=== PATIENT | female | born 1955 | race Caucasian/White ===

== ENCOUNTER 2023-09-10 13:22 | Outpatient (CLI) | payer MEDICARE, SELFPAY ==
--- NOTE | ~2023-09-10 | DEXA_ITS ---
Bone Density Report Name: ARCHIE CASTELAN Age: 67 Sex: Female Ethnicity: White Date of : 1955 Indication: osteopenia; height loss; prior fracture; postmenopausal Referring Provider: Annie Kumari Study: Bone densitometry was performed. Exam Date: September 10, 2023 Accession number: [id number] Bone Density: Region BMD T-score Z-score Classification AP Spine (L1-L4) 0.851 -1.8 0.2 Osteopenia Femoral Neck (Left) 0.598 -2.3 -0.6 Osteopenia Total Hip (Left) 0.736 -1.7 -0.3 Osteopenia Femoral Neck (Right) 0.597 -2.3 -0.6 Osteopenia Total Hip (Right) 0.744 -1.6 -0.2 Osteopenia Total Hip Mean 0.740 -1.7 -0.3 Osteopenia World Health Organization criteria for BMD impression classify patients as: Normal (T-score at or above -1.0), Osteopenia (T-score between -1.0 and -2.5), or Osteoporosis (T-score at or below -2.5). 10-year Fracture Risk(1): Major Osteoporotic Fracture 20% Hip Fracture 3.9% Reported Risk Factors: [place] (), Neck BMD=0.597, BMI=26.2, previous fracture (1) FRAX(R) Version 3.08. Fracture probability calculated for an untreated patient. Fracture probability may be lower if the patient has received treatment. Previous Exams: Region Exam Age BMD T-score BMD Change BMD Change Date g/cm2 vs Baseline vs Previous AP Spine(L1-L4) 09/10/2023 67 0.851 -1.8 -0.073* -0.073* 12/29/2013 58 0.925 -1.1 Total Hip(Left) 09/10/2023 67 0.736 -1.7 -0.076* -0.076* 12/29/2013 58 0.812 -1.1 Total Hip(Right) 09/10/2023 67 0.744 -1.6 -0.074* -0.074* 12/29/2013 58 0.818 -1.0 *Denotes significance at 95% confidence level, LSC for AP Spine = 0.022 g/cm2, LSC for Total Hip = 0.027 g/cm2 Clinical Information Provided by Patient: Has had a low trauma fracture Has used the following medications: Vitamin D, Calcium, MTV Patient maximum height was 69 Menopause Age: 55 No regular weight bearing exercise Does not regularly consume dairy products Drinks caffeinated beverages Onset of menses at age 11 Number of children 2 Impression: The patient has low bone mass, based on the Left Femoral Neck T-score. The patient has an estimated ten-year risk of hip fracture of 3.9% and an estimated ten-year risk of major fracture of 20%, based on the WHO FRAX algorithm. The patient has risk factors, including: previous fracture. The BMD for the AP Spine(L1-L4) decreased, changing by -0.073 since the
== END 2023-09-10 13:23 ==
LOC: MICIMG 13:23
PROVIDERS: PCP Nurse Practitioner; Visit Provider Family Medicine
DX: Z78.0 Asymptomatic menopausal state (principal); M85.88 Other specified disorders of bone density and structure, other site; M85.852 Other specified disorders of bone density and structure, left thigh; M85.851 Other specified disorders of bone density and structure, right thigh
CPT/HCPCS: 77080

== ENCOUNTER 2024-07-01 09:27 | Outpatient (CLI) | payer MEDICARE, SELFPAY ==
[2024-07-01 11:05] LABS: Basophils Percent Auto 0.3 % (0.2-1.2); Eosinophils Absolute Auto 0.1 K/mm3 (0-0.3); Eosinophils Percent Auto 1.8 % (0-4.4); Hematocrit 40.9 % (37.0-47.0); Hemoglobin 13.7 g/dL (12.0-15.0); Immature Granulocyte Absolute 0.01 K/mm3 (0.00-0.031); Immature Granulocyte Percent A 0.2 % (0-0.5); Lymphocytes Absolute Auto 1.53 K/mm3 (0.9-3.2); Mean Corpuscular HGB Conc 33.5 g/dl (32-36); Mean Corpuscular Hemoglobin 32.2 pg (26-34); Mean Corpuscular Volume 96.2 fl (80-100); Mean Platelet Volume 9.6 fl (7.4-10.4); Monocytes Absolute Auto 0.4 K/mm3 (0.1-0.6); Monocytes Percent Auto 5.7 % (2.6-8.5); Neutrophils Absolute Auto 4.1 K/mm3 (1.3-6.7); Platelet Count Result 224 k/mm3 (150-375); Red Blood Count 4.25 M/mm3 (4.2-5.4); Red Cell Distribution Width 12.2 % (11.5-14.5); White Blood Count 6.1 K/mm3 (4.5-10.0)
[2024-07-01 11:36] LABS: Vitamin D 25 Hydroxy 66.4 ng/mL
[2024-07-01 18:18] LABS: Alanine Aminotransferase 33 U/L (6-35); Albumin Level 4.4 g/dL (3.5-5.1); Alkaline Phosphatase 54 U/L (38-126); Anion Gap 9 mmol/L (4-12); Aspartate Amino Transferase 32 U/L (14-36); Bilirubin,Total 0.6 mg/dL (0.2-1.3); Blood Urea Nitrogen 13 mg/dL (7-17); Calcium 8.8 mg/dL (8.4-10.2); Carbon Dioxide 28 mmol/L (22-30); Chloride 105 mmol/L (98-107); Cholesterol 164 mg/dL (0-200); Estimated Glomerular Filt Rate > 60; Glucose 83 mg/dL (65-110); HDL Direct 70 mg/dL; Potassium 4.5 mmol/L (3.4-5.0); Sodium 142 mmol/L (137-145); Triglycerides 77 mg/dL (<150)
[2024-07-01 18:28] LABS: LDL Cholesterol Direct 67 mg/dL
[2024-07-02 03:39] LABS: Hemoglobin A1C 5.5 % (<5.7)
== END 2024-07-01 09:28 | disposition home or self-care (01) ==
PROVIDERS: PCP Family Medicine; Visit Provider Family Medicine
DX: E78.5 Hyperlipidemia, unspecified (principal); R73.9 Hyperglycemia, unspecified; E53.8 Deficiency of other specified B group vitamins; R41.3 Other amnesia; E55.9 Vitamin D deficiency, unspecified; Z79.899 Other long term (current) drug therapy
CPT/HCPCS: 36415; 70551; 80053; 80061; 82306; 82607; 83036; 84443; 85025

== ENCOUNTER 2024-12-15 11:34 | Outpatient (CLI) | payer MEDICARE, SELFPAY ==
--- OUTSIDE RECORDS SUMMARY | 2024-12-15 11:36 | XMS_ITS | Continuity of Care Document ---
Author Organization [facility] Address [address] [place] [address] Phone Care Team Providers Care Retail Pharmacy Technician Name Role Phone Viridiana Wright Unavailable Unavailable Advance Directives Directive Yes / No Effective Date File Name No Information Encounters Encounter Description Practice Location Reason(s) For Visit Diagnoses Date Provider Providers Copied on Encounter [facility], [address], [place], [place], [id number], [place] tel:[phone] [facility] No Information 3-[address] 6 Adriana Kemp. [address] , [address], [place], [address], [place]. tel:[phone] Family History Family Member Type Diagnosis Age At Onset No Information Payers Payer name Insurance type Covered alliance party ID Authorjulia fan(s) [facility] CI [id number] Social History Type Description Quantity Date Captured [...]
== END 2024-12-15 11:35 | disposition home or self-care (01) ==
PROVIDERS: PCP Family Medicine; Visit Provider Family Medicine
DX: E78.5 Hyperlipidemia, unspecified (principal); H93.13 Tinnitus, bilateral; R41.3 Other amnesia; Z79.899 Other long term (current) drug therapy
CPT/HCPCS: 36415

== ENCOUNTER 2024-12-29 12:57 | Outpatient (CLI) | payer MEDICARE, SELFPAY ==
--- NOTE | ~2024-12-29 | MR_ITS ---
EXAMINATION: MR knee RT wo con DATE: 12/29/2024 13:28 INDICATION: Right knee pain TECHNIQUE: Magnetic resonance imaging (MRI) of the right knee was performed without intravenous contrast. Sequences included coronal PD-weighted FSE, coronal PD-weighted FS FSE, sagittal T2-weighted FSE, sagittal PD-weighted FS FSE and axial PD weighted fat saturated FSE. COMPARISON: None. FINDINGS: Medial compartment: Medial meniscus is normal. Articular cartilage is normal. Lateral compartment: Complex tear of the anterior horn and anterior body of the lateral meniscus mild partial-thickness chondral ulceration and fissuring at the central posterior aspect of the lateral tibial plateau without degenerative subchondral changes. Additional partial-thickness chondral ulceration along the medial margin of the central to posterior weightbearing lateral femoral condyle with underlying mild cortical irregularity with a few tiny central subchondral osteophytes. Chondral ulceration with mild subarticular edema-like signal change along the lateral margin of the posterior most weightbearing lateral femoral condyle. Patellofemoral compartment: Partial-thickness of the patellar chondral ulceration and fissuring with tiny foci of mild subarticular edema-like signal change at both the medial and lateral facets. Additional scattered partial-thickness chondral ulceration and fissuring at the central to inferior aspect of the lateral trochlea and trochlear groove and at the inferior aspect of the medial trochlea. Ligaments and tendons: Anterior and posterior cruciate ligaments are normal. The medial collateral ligament and fibular collateral ligament complex are normal. The extensor mechanism is normal. The visualized medial and lateral hamstring tendons as well as the iliotibial band are normal. Fluid: Small to moderate-sized knee joint effusion with mild infarcts at the suprapatellar pouch. No loose osteochondral bodies identified. Osseous/other: Small focus of mild marrow edema at the central anterior tibia near the anterior root of the lateral meniscus, likely related to the meniscal tear. No fracture or pathologic marrow replacing process. IMPRESSION: 1. Complex tear of the anterior horn and anterior body of the lateral meniscus. 2. 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 3. Small to moderate-sized right knee joint effusion with mild synovitis at the suprapatellar pouch. Reviewed, dictated and finalized at location A. IMPRESSION: 1. Complex tear of the anterior horn and anterior body of the lateral meniscus. 2. Mild osteoarthritis with moderate and high-grade chondromalacia in the later al and patellofemoral compartments. 3. Small to moderate-sized right knee joint effusion with mild synovitis at the suprapatellar pouch.
== END 2024-12-29 12:58 | disposition home or self-care (01) ==
LOC: MICIMG 12:58
PROVIDERS: PCP Family Medicine; Visit Provider Orthopaedic Surgery
DX: S83.271A Complex tear of lateral meniscus, current injury, right knee, initial encounter (principal); X58.XXXA Exposure to other specified factors, initial encounter; M17.11 Unilateral primary osteoarthritis, right knee; M25.461 Effusion, right knee
CPT/HCPCS: 73721

== ENCOUNTER 2025-01-31 12:28 | Outpatient (CLI) | payer MEDICARE, SELFPAY ==
--- OUTSIDE RECORDS SUMMARY | 2025-01-31 12:32 | XMS_ITS | Clinical Summary ---
Author Organization [facility] Address [address] [place] [address] Care Team Providers Care Tire Servicer Name Role Phone Dominick Abdi MD Primary Care Provider [phone] Allergies Active Allergy Reactions Criticality Noted Date Comments Meperidine GI Upset 07/15/2019 Erythromycin GI Upset 07/15/2019 Medications No known medications Social History Tobacco Use Types Packs/Day Years Used Date Smoking Tobacco: Never Smokeless Tobacco: Never Alcohol Use Standard Drinks/Week Comments Yes 0 (1 standard drink = 0.6 oz pur e alcohol) socially Comments No Sex and Gender Information Value Date Recorded Sex Assigned at Not on file Legal Sex Female 7:24 PM CDT Gender Identity Not on file Sexual Orientation Not on file Last Filed Vital Signs Vital Sign Reading Time Taken Comments Blood Pressure 114/64 07/15/2019 9:49 AM CDT Pulse 88 07/15/2019 9:49 AM CDT Temperature 37 C (98.6 F) 07/15/2019 9:49 AM CDT Respiratory Rate 16 07/15/2019 9:49 AM CDT Oxygen Saturation 99% 07/15/2019 9:49 AM CDT Inhaled Oxygen Concentration - - Weight 77.1 kg (170 lb) 07/15/2019 9:49 AM CDT Height 172.7 cm (5' 8) 07/15/2019 9:49 AM CDT Body Mass Index 25.85 07/15/2019 9:49 AM CDT Plan of Treatment Health Maintenance Due Date Last Done Comments Colorectal Cancer Screening Colonoscopy (10 Years) 1955 Hepatitis C 11/15/1973 DTaP, Tdap and Td Vaccines ( 1 - Tdap) 11/15/1974 Mammogram Screening 1995 Pneumococcal Vaccine: 50+ Ye ars (1 of 1 - PCV) 11/15/2005 Zoster Vaccines (1 of 2) 11/15/2005 Annual Medicare Wellness Visit 11/15/2020 Dexa Scan (General) 11/15/2020 COVID-19 Vaccine (1 - 2023-2 5 season) 2025 RSV Immunization or 60+ Years (1 - 1-dose 75+ series) 11/15/2030 Meningococcal B Vaccine Aged Out No l onger eligible based on patient's age to complete this topic Meningococcal Vaccine Aged Out No evelina nicol eligible based on patient's age to complete this topic RSV Immunizations Under 20 Months Aged Out No longer eligible based on patient's age to complete this topic Insurance [facility] Care Teams Tire Servicer Relationship Specialty Start Date End Date Dominick Abdi MD [facility] [address] [address] PCP - General FAMILY PRACTICE 11/11/22
--- NOTE | 2025-01-31 12:40 | ECG_ITS ---
Test Date: 2025-01-31 12:52:01 Measurements Intervals [place] Rate: 71 P: 67 SC: 180 QRS: 37 QRSD: 80 T: 46 QT: 357 QTc: 388 Interpretive Statements SINUS RHYTHM No previous ECG available for comparison Electronically Signed On 01-31-2025 13:27:10 CDT by Jose Heredia M.D.
== END 2025-01-31 12:29 | disposition home or self-care (01) ==
PROVIDERS: PCP Family Medicine; Visit Provider Family Medicine
DX: Z01.818 Encounter for other preprocedural examination (principal); Z91.89 Other specified personal risk factors, not elsewhere classified; I70.0 Atherosclerosis of aorta
CPT/HCPCS: 93005

== ENCOUNTER 2025-03-11 00:26 | Day surgery (SDC) | payer MEDICARE, SELFPAY ==
--- OUTSIDE RECORDS SUMMARY | 2005-05-07 10:15 | XMS_ITS | Continuity of Care Document ---
Author Organization [facility] Address [address] [place] [address] Phone Care Team Providers Care Residential Director Name Role Phone Viridiana Wright Unavailable Unavailable Advance Directives Directive Yes / No Effective Date File Name No Information Encounters Encounter Description Practice Location Reason(s) For Visit Diagnoses Date Provider Providers Copied on Encounter [facility], [address], [place], [place], [id number], [place] tel:[phone] [facility] No Information 3-200 6 Adriana Kemp. [address] , [address], [place], [address], [place]. tel:[phone] Family History Family Member Type Diagnosis Age At Onset No Information Payers Payer name Insurance type Covered green party ID Authorjulia fan(s) [facility] CI [id number] Social History Type Description Quantity Date Captured Comments Sex Female Smoking Status No Information Chief Complaint And Reason For Visit No Information Reason For Referral Reason For Referral No Information History Of Present Illness Encounter Date Complaint History Of Prese nt Illness No Information Functional Status Date Functional Assessmen t No Information Instructions Date Instruction Additional Infor mation No Information Assessments Type Assessment Date No Information Patient Care Teams Name Effective Dates (start - stop) Status Members No Information
[2025-03-02 15:23] VITALS: BMI 23.3
--- NOTE | 2025-03-02 15:34 | PC.NURSE ---
[facility] has started construction of its new state of the art ER which will open Spring 2026. With this, we anticipate parking may be a challenge for some our surgical patients and families. Parking spaces are limited but are available for all Surgical, obstetrics, and ER patients sharing this lot. If you arrive and find you are having a hard time finding a parking space, please note that we understand the challenges, please drive around the hospital and park near Hospital Entrance 1. When you enter this entrance, you can ask a volunteer to direct or take you back to the surgical waiting area to check in. We appreciate everyone?s understanding of these expected challenges while we build for your future. Report to the Outpatient Waiting Room, entrance under the green pavilion located off [address], at time _0600_ on date _[id number]_. Planned Procedure Time: _0730_.? Time changes happen often and if your time is changed the preop area will call you the afternoon before. - You and your visitor will be asked to self-screen and do not enter if you have any COVID symptoms. Please call surgeon if you need to reschedule. - A mask is optional within the hospital at this time. Patients may have clear liquids (water, carbonated beverages, clear teas, apple juice) until 3 hours prior to surgery with a maximum of 20 ounces. - No food from midnight until time of surgery and no smoking, or chewing tobacco (or any form of nicotine). No chewing gum, candy or mints. Take only the following medications with a SIP of water on the morning of surgery: ___Venlafaxine____ DO NOT STOP ANY OF YOUR OTHER PRESCRIPTION MEDICATIONS PRIOR TO SURGERY EXCEPT THE FOLLOWING Hold all vitamins and supplements for 3 days per anesthesiologist. Medications to discontinue per physician Date to take last dose Please no make-up, nail solomon islander, hairspray, perfume, deodorant, or body powder the day of surgery.? No jewelry (including any body piercings) or valuables the day of surgery, leave them at home.? Please take a shower or bath the night before, or the morning of, surgery with an antibacterial soap.? Wear comfortable, loose fitting clothing.? - Jewelry must be removed prior to entering the operating room.? Rings and piercings that are not removed may be cut off. - The hospital will not accept responsibility for valuables.? - Please leave all valuables, including medications, at home the day of surgery. If you are going home after surgery, a licensed cdl truck driver must drive you home.? - NO public transportation without another adult if you receive anesthesia. - We recommend that an adult stay with you for 24 hours following discharge. - We also recommend that you do not drive, make important decision, drink alcoholic beverages, or take any drugs that were not prescribed by your health care provider for at least 24 hours after your discharge time. Follow any additional instructions given to you from your surgeon. Telephone instructions given to __Antoinette___and asked if any additional questions and then verbalized understanding. Patient advised to call surgeon office or pre surgery nurse liaison [phone] if any additional questions.
[2025-03-11] VITALS (10 sets, daily range): BP systolic 105–127; BP diastolic 61–76; PULSE 62–78; RESP 12–20; TEMP 36.4–37.2; O2SAT 94–100
--- OUTSIDE RECORDS SUMMARY | 2025-03-11 00:28 | XMS_ITS | Clinical Summary ---
Author Organization [facility] Address [address] [place] [address] Care Team Providers Care Wire Frame Lampshade Maker Name Role Phone Dominick Abdi MD Primary Care Provider [phone] Allergies Active Allergy Reactions Criticality Noted Date [...] Scan (General) 11/15/2020 COVID-19 Vaccine (1 - 2024-2 6 season) 2025 Influenza Adult (#1) 2025 03/03/2019 RSV Immunization or 60+ Years (1 - 1-dose 75+ series) 11/15/2030 Hepatitis A Vaccines Aged Out No long er eligible based on patient's age to complete this topic Meningococcal B Vaccine Aged Out No l onger eligible based on patient's age to complete this topic Meningococcal Vaccine Aged Out No evelina nicol eligible based on patient's age to complete this topic RSV Immunizations Under 20 Months Aged Out No longer eligible based on patient's age to complete this topic [place] [address] Care Teams Wire Frame Lampshade Maker Relationship Specialty Start Date End Date Dominick Abdi MD [address] [facility] [address] [place] [address] PCP - General FAMILY PRACTICE 11/11/22
[2025-03-11] MEDS: ACETAMINOPHEN 500 MG TABLET 1000 MG PO (07:06)
[2025-03-11] MEDS: CELECOXIB 200 MG CAPSULE PO (07:06)
--- NOTE | 2025-03-11 07:15 | WPDANESEPPF ---
Anes - Initial Pre Proc Eval Procedure: Operation Date: 03/11/25 07:30 Proposed Procedures p Right Knee Arthroscopy - Jose Antonio Nolan MD Date/Time: 03/11/25 07:15 Surgeon: Jose Antonio Nolan MD Pre Op Diagnosis: Rt Knee Lateral Meniscus Tear Patient Data Age: 69 Gender: F Height: 1.7 m Weight: 67.7 kg Allergies Allergy/AdvReac Type Severity Reaction Status Date / Time doxycycline Allergy Unknown Nausea Verified 03/11/25 07:04 erythromycin base Allergy Unknown Nausea Verified 03/11/25 07:04 meperidine Allergy Unknown Low blood Verified 03/11/25 07:04 pressure Home Medications ?Medication ?Instructions ?Recorded ?Confirmed ?Type venlafaxine 150 mg 150 mg PO DAILY 08/07/20 03/10/25 History capsule,extended release 24 hr (Effexor XR) calcium ER 600 mg (as carb,cit)-D3 2 tablet PO DAILY 06/05/23 03/10/25 History 12.5 mcg (500 unit) tablet, ext.rel (Citracal-D3 Slow Release) mecobalamin (vitamin B12) 1,000 1,000 mcg PO DAILY 06/05/23 03/10/25 History mcg chewable tablet solifenacin 5 mg tablet 5 mg PO DAILY 06/05/23 03/10/25 History alendronate 70 mg tablet 70 mg PO WEEKLY #12 tabs 03/23/24 03/10/25 Rx cholecalciferol (vitamin D3) 50 50 mcg PO DAILY 06/17/24 03/10/25 History mcg (2,000 unit) tablet esomeprazole magnesium 20 mg 20 mg PO DAILY PRN stomach upset 06/17/24 03/10/25 History capsule,delayed release (Nexium) hydroxyzine HCl 25 mg tablet 25 mg PO DAILY 12/15/24 03/10/25 History rosuvastatin 40 mg tablet (Crestor) 40 mg PO QHS 12/15/24 03/10/25 History chlorhexidine gluconate 4 % 1 applic topical ONCE #237 mL 03/04/25 03/10/25 Rx topical liquid (Hibiclens) Patient hx anesthesia problems: none Family hx anesthesia problems: none Results Review: All pre-operative results and documents have been reviewed as part of the pre-operative evaluation. [facility] Past Medical History Medical History MCI (mild cognitive impairment) GERD without esophagitis Tinnitus of both ears Osteopenia Intermittent low back pain Dyslipidemia Vitamin B12 deficiency Urge incontinence Anxiety Allergies Obstructive sleep apnea (adult) (pediatric) Rib fractures (~07/2019) Surgical History Surgical History H/O vaginal delivery 1987, 1983 History of D&C Family History Family History Father Hypertension Mother Family history of Alzheimer's disease Social History Social History Smoking status: Never smoker Alcohol intake: current Substance use: never Substance use type: does not use Do You Feel Safe in your Home?: Yes Lack of Transportation: No Lack of Food: Never True Current Housing: I Have Housing Concerned About Future Housing: No Difficulty Paying Gas/Electric Bills: No Difficulty Paying for Meds: No Currently Unemployed: No Education: Bachelor's Degree Difficulty w/ Childcare or Family Care: No Living arrangements: with family Occupation/Education: retired Gender identity (if verbalized by the patient): Female Sexual Orientation (if Verbalized by the Patient): Straight or Heterosexual Spiritual care concerns: No Agree to blood products: Yes Anes - Eval Final PreProcedure Day of Procedure 03/11/25 07:15 Patient weight: normal Heart: regular rate and rhythm Lungs: clear to auscultation Airway: Mallampati scale class II Neurological: alert and oriented Last oral intake: >/= 8 hours ASA classification: III Emergent: no Anesthetic plan: proceed Anesthesia type and monitoring: general LMA and standard monitoring Results Review: All pre-operative results and documents have been reviewed as part of the pre-operative evaluation. Informed Consent: The patient's anesthetic plan and its attendant risks and benefits were discussed with the patient/family/POA. Questions were solicited and answers provided to the satisfaction of the patient/family/POA.
[2025-03-11] MEDS: SCOPOLAMINE 1 MG PATCH 1 PATCH TRANSDERM (07:18)
[2025-03-11] MEDS: LACTATED RINGERS 1,000 ML 30 ML IV CONT (07:18)
--- NOTE | 2025-03-11 07:34 | WPDHPUPDATE1 ---
History and Physical Update Update Date/Time: 03/11/25 07:34 History and Physical has been reviewed, including an updated exam of the patient. There are NO changes in the patient's condition. Risks, benefits, and alternatives have been discussed and questions answered. Patient agrees to proceed with procedure.
[2025-03-11] MEDS: ceFAZolin 2 GM in SODIUM CHLORIDE 0.9% IV 50 ML 100 ML IVPB (07:39)
--- NOTE | 2025-03-11 09:11 | W.PM.PROC2 ---
Procedure Note - Detailed Date of Procedure 03/11/25 Pre-op Diagnosis Rt Knee Lateral Meniscus Tear Post-op Diagnosis Same Procedure Performed RIGHT KNEE SCOPE Surgeon Jose Antonio Nolan MD Anesthesia General Description of Procedure PATIENT WAS TAKEN TO THE OR. RIGHT LEG WAS PREPPED AND DRAPED STERILE. TROCARS WERE PLACED IN THE USUAL FASHION. CAMERA WAS INTRODUCED. THERE WAS CHONDROMALACIA TO THE PATELLA FEMORAL JOINT. THERE WAS A LOT OF SYNOVITIS IN ALL COMPARTMENTS. THE MEDIAL COMPARTMENT SHOWED CHONDROMALACIA TO THE MEDIAL FEMORAL CONDYLE. A SHAVER WAS USED TO PREFORM A CHONDROPLASTY. THERE WAS A COMPLEX MEDIAL MENISCUS TEAR. THE TEAR WAS RESECTED WITH A BITER AND A SHAVER DOWN TO A SMOOTH BASE. THE ACL WAS INTACT. THE LATERAL MENISCUS WAS TORN AT THE ANTERIOR HORN. THE TEAR WAS LARGE AND INVOLVED THE MAJORITY OF THE ANTERIOR HORN. THE TEAR WAS RESECTED. THE LATERAL COMPARTMENT HAD MINIMAL GRADE 2 CHONDROMALACIA AT THE LATERAL PLATEAU. CHONDROPLASTY WAS PREFORMED. A SYNOVECTOMY WAS PREFORMED WELL. THE PATELLO FEMORAL JOINT UNDERWENT CHONDROPLASTY. THERE WAS GRADE 3 CHONDROMALACIA IN MOST OF THE TROCHLEA AND PART OF THE PATELLA. SYNOVECTOMY WAS PREFORMED IN THE SUPERIOR MEDIAL COMPARTMENT. THE WOUNDS WERE APPROXIMATED WITH 4.0 NYLON. STERILE DRESSING WAS APPLIED. PATIENT WAS EXTUBATED. Estimated Blood Loss 5 Complications No immediate complications Condition Stable Disposition PACU
[2025-03-11] MEDS: HYDROmorphone HCL INJ (*CRX) 1 MG/ML SYR 0.25 MG IV PUSH ×2 (10:05→10:10)
== END 2025-03-11 11:35 | disposition home or self-care (01) ==
PROVIDERS: PCP Family Medicine; Visit Provider Orthopaedic Surgery
PROC: (CPT 29870; principal; 2025-03-11 07:30)
DX: S83.231A Complex tear of medial meniscus, current injury, right knee, initial encounter (principal); S83.281A Other tear of lateral meniscus, current injury, right knee, initial encounter; M22.41 Chondromalacia patellae, right knee; M65.861 Other synovitis and tenosynovitis, right lower leg; X58.XXXA Exposure to other specified factors, initial encounter
CPT/HCPCS: 29880; J0690; A9270; J1100; J1171; J2003; J2405; J2704; J3010; J7120